=== PATIENT | female | born 1995 | race Caucasian/White ===

== ENCOUNTER 2018-03-11 00:32 | Outpatient (CLI) | payer BC, SELFPAY ==
--- NOTE | 2018-03-11 12:55 | DI.REPORT_ITS ---
SYMPTOMS/DIAGNOSIS: PELVIC PAIN IN FEMALE, R10.2, ? LEFT OVARIAN CYST PELVIC ULTRASOUND: Transabdominal and transvaginal examination was performed. No priors for comparison. The uterus measures 7.2 cm long x 5.4 cm AP x 4.1 cm transverse. The endometrial stripe is within normal limits at 1.1 cm. There is an intrauterine device in good position. No myometrial masses present. The right ovary measures 2.7 x 1.7 x 2.6 cm. The left ovary measures 3 x 2.4 x 2.8 cm. Small follicular cysts are seen bilaterally. There is normal blood flow to the ovaries. No evidence of torsion is present. No free pelvic fluid or hydronephrosis is identified. IMPRESSION: Intrauterine device in good position. Unremarkable pelvic ultrasound.
== END 2018-03-11 00:33 ==
PROVIDERS: PCP Nurse Practitioner Family; Visit Provider Nurse Practitioner Women's Health
DX: R10.2 Pelvic and perineal pain (principal); N83.01 Follicular cyst of right ovary; N83.02 Follicular cyst of left ovary; Z97.5 Presence of (intrauterine) contraceptive device
CPT/HCPCS: 76830; 76856

== ENCOUNTER 2018-06-19 17:15 | Emergency (ER) | payer BC, SELFPAY ==
[2018-06-19] VITALS (17 sets, daily range): BP systolic 100–117; BP diastolic 58–72; PULSE 92–100; RESP 16–18; TEMP 36.6–37.3; O2SAT 95–100
[2018-06-19] MEDS: Normal Saline 1,000 ML 1000 ML IV (17:34)
--- NOTE | 2018-06-19 17:35 | ED.GENADUL_ITS ---
Discharge Plan Disposition Patient Disposition: HOME Condition: Stable Discharge Details Chief Complaint: Abd Prob Clinical Impression: Nephrocalcinosis, Abdominal pain Primary Care Provider: Emily Clarke ED Provider: Jean Spencer Home Meds and New Rx's Prescriptions: New promethazine 25 mg tablet 25 mg PO Q6H PRN (Reason: nausea and vomiting) Qty: 14 RF: 0 Continue norgestimate-ethinyl estradiol [Sprintec (28)] 0.25-35 mg-mcg tablet 1 tab PO DAILY Qty: 84 RF: 0 insulin lispro [Humalog U-100 Insulin] 100 UNIT/1 ML cartridge RF: 0 Discharge Instructions Instructions: Dehydration (ED), Abdominal Pain (ED) Additional Instructions: Feel free to return to the emergency department for any new or worsening symptoms. You may take prescribed medication as needed for any further nausea and stay well-hydrated and slowly increase her diet as tolerated. You should follow-up with your primary care provider for reassessment of your symptoms and to see if you need any further testing. Referrals: Emily Clarke [Primary Care Provider] - 1 week Medical Decision Making Patient presenting the emergency department chief complaint of abdominal pain and headache since this morning. Patient denies any fever chills and states only other associated symptoms is nausea. Patient has odd affect as when not being questioned or have anything she is resting comfortably in bed but upon any questioning or physical examination patient seems to elicit pain. This makes it difficult to perform physical examination but patient does have a guarded abdomen with difficulty to isolate any sort of abdominal findings. Patient is otherwise neurologically intact and no cardiac respiratory findings, no neurological findings, no CVA tenderness. Given patient's guardedness and abnormality of exam I do feel that labs and CT images warranted to rule out acute abdominal emergency. Pending results patient given IV fluids, Zofran, and morphine. Review of labs is nondiagnostic and shows no significant leukocytosis, no severe electrolyte abnormalities. Patient reassessed and states that she is feeling slightly better and that she has not eaten today. Review of CT scan shows bilateral nephrocalcinosis otherwise no other acute findings noted. Patient has no signs of acute renal failure and no urinary findings. Patient was reassessed again and now is more calm and I am able to assess the abdomen and show no acute surgical findings within the abdomen. Given this I feel the patient is able to be safely discharged home but do plan on p.o. challenging her prior to discharge given poor intake today. Patient was able to drink some water and attempted to eat some benoit crackers which is stated made her feel nauseous. Patient was then given Phenergan. Patient was able to continue to tolerate p.o. intake of fluids and states that she is ready to be discharged. Patient was encouraged to return for any new or worsening symptoms otherwise placed up on the list for follow-up with primary care provider for reassessment in the next week. After discussion of diagnosis and plan of care patient has no further needs, questions, or concerns and states clear understanding to return to the emergency department for any worsening symptoms. HPI General Mode of arrival: EMS . Date/Time Provider Initiated Documentation: 06/19/18 17:28 . Limitations to Documentation: no limitations . Information obtained by: patient and RN notes reviewed . History of Present Illness 23 year old F presents to the emergency department with the chief complaint of abd pain, described as moderate, with intensity rated at 8. Quality is described as aching, and is localized to the abdomen. Patient reports no radiation. Patient started experiencing this day(s) (1) and it has been constant. No relieving factors improve symptom(s), No exacerbating factors reported . Patient did receive the following treatments prior to arrival, none Related Data Home Medications Medication Instructions Recorded Confirmed insulin lispro [Humalog U-100 03/04/18 05/11/18 Insulin] norgestimate 0.25 mg-ethinyl 1 tab PO DAILY #84 tab 05/11/18 06/19/18 estradiol 35 mcg tablet promethazine 25 mg PO Q6H PRN #14 tab 06/19/18 Previous Rx's Medication Instructions Recorded norgestimate 0.25 mg-ethinyl 1 tab PO DAILY #84 tab 05/11/18 estradiol 35 mcg tablet promethazine 25 mg PO Q6H PRN #14 tab 06/19/18 Allergies Allergy/AdvReac Type Severity Reaction Status Date / Time insulin glulisine AdvReac Severe Nausea Verified 06/19/18 17:21 [From Apidra U-100 Insulin] General Stated Complaint: Abd Prob TERESA: 3 Review of Systems Constitutional Denies chills, Reports fever(s) and Reports poor appetite Cardiovascular Denies chest pain and Denies dyspnea Respiratory Denies dyspnea Gastrointestinal Reports as per HPI, Reports abdominal pain, Denies melena, Denies change in bowel habits, Denies constipation, Denies diarrhea, Reports nausea and Denies vomiting Genitourinary Denies hematuria, Denies urinary incontinence, Denies urinary hesitancy and Denies urinary urgency Integumentary/Breasts Denies rash PFSH Family History Mother No problems noted. Father No problems noted. Sister No problems noted. Sister No problems noted. Brother No problems noted. Brother No problems noted. 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,[employer] frequency: 3-4 times per week duration: 60-90 minutes/day Smoking/Tobacco Use Status: Never alcohol intake: current alcohol intake frequency: holidays/special occasions only substance use type: does not use Female Reproductive History Menstrual control method: progestin IUCD Exam Const General: in distress mild; not respiratory and anxious Orientation: alert, awake and oriented x3 Limitations: mental status not altered Resp Effort & Inspection: normal respiratory effort and able to speak in complete sentences Auscultation: clear to auscultation bilaterally Cardio Rate: regular rate Rhythm: regular rhythm Heart Sounds: S1 normal and S2 normal GI Palpation: soft, not firm, guarding (difuse), no masses, no pulsatile masses, not rigid, no splenomegaly and tender (difuse) Auscultation: normal bowel sounds Back/Spine/Pelvis Back: no CVA tenderness Neuro General: alert, awake, oriented x3 and moves all extremities Psych Appearance: disheveled Mood: anxious mood Course Vital Signs Temperature 36.6 C 06/19/18 17:16 Pulse 92 H 06/19/18 17:16 Respiratory Rate 18 06/19/18 17:16 Blood Pressure 117/72 06/19/18 17:16 Pulse Oximetry 99 06/19/18 17:16 Temperature 36.6 C 06/19/18 17:16 Temperature Source Skin 06/19/18 17:16 Pulse 92 H 06/19/18 17:16 Respiratory Rate 18 06/19/18 17:16 Blood Pressure 117/72 11/09/18 17:16 Pulse Oximetry 99 06/19/18 17:16 Oxygen Delivery Method Room Air 06/19/18 17:16 Oxygen Flow Rate 0 06/19/18 17:16 Pain Level 8 06/19/18 17:16
[2018-06-19 17:46] LABS: Abs Immature Grans 0.01 k/cumm (0.0-0.09); Absolute Basophil Count 0.02 k/cumm (0.0-0.2); Absolute Lymphocyte Count 1.33 k/cumm (1.2-3.4); Absolute Monocyte Count 0.21 k/cumm (0.11-0.7); Basophils % 0.2; HCT 39.2 % (36.0-46.0); HGB 13.3 g/dL (12.0-15.5); Immature Grans % 0.1; Lymphocytes % 14.3; Mean Corp. HGB Concentration 33.9 g/dL (32.0-36.0); Mean Corpuscular Hemoglobin 30.3 pg (27.0-33.0); Mean Corpuscular Volume 89.3 fL (80-95); Mean Platelet Volume 9.7 fL (8.0-11.0); Monocytes % 2.3; Neutrophils % 83.1; Platelet Count 388 x1000/uL (130-400); RBC 4.39 m/cumm (4.00-5.20); RBC Distribution Width 12.6 % (11.7-14.6); White Blood Cell Count 9.27 k/cumm (4.4-10.8)
[2018-06-19] MEDS: Ondansetron 4 MG/2 ML VIAL IVP (17:59)
[2018-06-19] MEDS: MORPHine 10 MG/ML VIAL 4 MG IVP (17:59)
[2018-06-19 18:00] LABS: ALT 17 U/L (12-78); AST 24 U/L (15-37); Albumin 3.7 g/dL (3.4-5.0); Alkaline Phosphatase 64 U/L (46-116); Anion Gap 13.7 mmol/L (3-11); BUN 5 mg/dL (7-18); Bilirubin, Total 0.4 mg/dL (0.2-1.0); CO2 22.3 mmol/L (21.0-32.0); CREATININE 0.62 mg/dL (0.55-1.02); Calcium 8.9 mg/dL (8.5-10.1); Chloride 99 mmol/L (98-107); Glucose 101 mg/dL (70-100); Lipase 72 U/L (73-393); Magnesium 1.7 mg/dL (1.8-2.4); Potassium 3.2 mmol/L (3.5-5.1); Sodium 135 mmol/L (136-145); Total Protein 7.7 g/dL (6.4-8.2)
--- NOTE | 2018-06-19 18:21 | DI.CT_ITS ---
SYMPTOM/DIAGNOSIS: ABD PAIN CT ABDOMEN AND PELVIS: CT scan of the abdomen and pelvis was performed following the uneventful administration of intravenous contrast material. There are no priors for comparison. The dome of the liver was not included on this examination. The visualized lung bases are clear. The visualized portions of the liver are unremarkable. The portal and superior mesenteric veins are patent. Gallbladder is negative. No biliary ductal dilatation is seen. The pancreas, spleen and adrenal glands are unremarkable. The kidneys show normal and symmetric enhancement. There are tiny hypodensities seen within the kidneys. They are too small for further characterization but likely reflect very small cysts. There does appear to be increased attenuation of the medullary pyramids. 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 No evidence of ureterolithiasis or hydronephrosis is seen. The urinary bladder is intact. The reproductive organs are unremarkable.. The abdominal aorta is of normal caliber. No significant abdominal or pneumoperitoneum is present. There is a small amount of free fluid in the pelvis and in the right pericolic gutter. The bowel is unremarkable. There is a normal appendix seen in the right lower quadrant. The bones appear intact. There is a chronic appearing triangular well corticated tiny calcification at the anterior superior aspect of the L3 vertebral body. No acute fractures or subluxations are appreciated. IMPRESSION: No evidence of an acute abdomen.
[2018-06-19 18:37] LABS: Bilirubin Negative (Negative); Blood Negative (Negative); Clarity Clear; Glucose Negative (Negative); Ketones 80 mg/dL (Negative); Leukocyte Esterase Negative (Negative); Nitrite Negative (Negative); Urobilinogen 0.2 EU/dL (Up TO 0.2); pH 7.5 (5-8)
[2018-06-19] MEDS: Omnipaque 350 MG/ML 100 ML BTL IJ (18:49)
--- NOTE | 2018-06-19 18:54 | DI.VRAD_ITS ---
EXAM: CT Abdomen and Pelvis With Intravenous Contrast EXAM DATE/TIME: 06/19/2018 6:22 PM CLINICAL HISTORY: 23 years old, female; Pain; Abdominal pain TECHNIQUE: Axial computed tomography images of the abdomen and pelvis with intravenous contrast. Coronal and sagittal reformatted images were created and reviewed. COMPARISON: US PELVIS TRANSVAG 03/11/2018 10:30 PM FINDINGS: Lower thorax: No acute findings. ABDOMEN: Liver: Normal. No mass. Gallbladder and bile ducts: Normal. No calcified stones. No ductal dilation. Pancreas: Normal. No ductal dilation. Spleen: Normal. No splenomegaly. Adrenals: Normal. No mass. Kidneys and ureters: Very small cysts in both kidneys . 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 No obstruction. No mucosal thickening. Appendix: Normal appendix PELVIS: Bladder: Unremarkable as visualized. Reproductive: Unremarkable as visualized. ABDOMEN and PELVIS: Intraperitoneal space: Mild amount of fluid in the right pericolic gutter. Mild amount of free fluid in the pelvis. . Bones/joints: Unhealed fracture involving the anterior superior aspect of L3 Soft tissues: Unremarkable Vasculature: Normal. No abdominal aortic aneurysm. 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 Ordering:LOW WASHINGTON MD
[2018-06-19] MEDS: Promethazine 25 MG TAB PO (19:59)
== END 2018-06-19 21:10 | disposition home or self-care (01) ==
PROVIDERS: Emergency Provider Nurse Practitioner Family; PCP Nurse Practitioner Family
DX: E83.59 Other disorders of calcium metabolism (principal); R10.9 Unspecified abdominal pain; R51 Headache
CPT/HCPCS: 36415; 80053; 81025; 83690; 96361; 96374; 96375; 99285; 74177; 81003; 83735; 85025; 99284; J2270; J2405; J3490

== ENCOUNTER 2023-07-14 04:05 | Outpatient (CLI) | payer OTHER, BC, SELFPAY ==
[2023-07-14 15:24] LABS: Panorama Kit Sent via Fed Ex
[2023-07-14 15:34] LABS: Abs Immature Grans 0.04 10^3/uL (0.0-0.06); Absolute Basophil Count 0.06 10^3/uL (0.0-0.2); Absolute Eosinophil Count 0.17 10^3/uL (0.0-0.7); Absolute Lymphocyte Count 2.22 10^3/uL (1.2-3.4); Basophils % 0.5; Eosinophils % 1.5; HCT 38.2 % (36.0-46.0); HGB 12.7 g/dL (11.2-15.7); Immature Grans % 0.4; Lymphocytes % 19.8; MCH 29.1 pg (27.0-33.0); MCHC 33.2 % (32.0-36.0); MCV 88 fL (80-95); MPV 9.1 fL (8.0-11.0); Monocytes % 4.5; Neutrophils % 73.3; Platelet Count 474 10^3/uL (130-400); RBC 4.36 10^6/uL (3.93-5.22); RDW 13.1 % (11.7-14.6); RDW-SD 42.2 fL; WBC 11.19 10^3/uL (4.4-10.8)
[2023-07-14 16:06] LABS: TSH (W/Ref FT4) 2.08 uIU/mL (0.36-3.74)
[2023-07-15 10:25] LABS: Rubella IgG Ab (UVM) Positive (See Note); Varicella IgG Antibody Positive (See Note)
[2023-07-15 11:08] LABS: Hepatitis C Ab w Rflx HCV PCR Negative (Negative)
[2023-07-15 11:22] LABS: HIV-1/2 Ag & Ab Screen Negative (Negative)
[2023-07-15 11:35] LABS: Hepatitis B Surface Ag Negative (Negative)
[2023-07-16 22:04] LABS: Syphilis IgG w/Reflex Nonreactive (Nonreactive)
== END 2023-07-14 04:06 | disposition home or self-care (01) ==
PROVIDERS: PCP Nurse Practitioner Family; Visit Provider Advanced Practice Midwife
DX: Z34.91 Encounter for supervision of normal pregnancy, unspecified, first trimester
CPT/HCPCS: 36415; 86787; 86803; 86850; 86900; 86901; 87340; 87389; 84443; 85025; 86762; 86780

== ENCOUNTER 2023-07-14 15:53 | Outpatient (REF) | payer OTHER, BC, SELFPAY ==
--- NOTE | 2023-07-14 14:00 | PAPFT_PTH ---
PATIENT: Deb Amaya LOC: [facility] U#:[id number] AGE/SX: 28/F ROOM: RE07/14/[address]: Jannette Muhammad CNM : 1995 BED: DIS: 07/14/2023 SPEC #: [id number] RECD: 07/14/23 18:02 STATUS: LENIN SADLER #: [id number] GENNA: 07/14/23 14:[address]: Jannette Muhammad DEPT: [facility] Cytology RECD BY: Adele Trammell ENTERED: 07/14/23 18:03 SP TYPE: PAPFT OTHR DR: Emily Clarke Tissues: 1 - CX/ENDOCX FOR PAP SMEARS Procedures: PAP THIN PREP/UVM Screening HPV DNA PROBE Comments: [id number] (CHLAMYDIA/GC)
[2023-07-14 18:41] LABS: *AMPHETAMINES SCREEN URINE Negative (Negative); *BARBITURATES SCREEN URINE Negative (Negative); *BENZODIAZEPINES SCREEN URINE Negative (Negative); Cannabinoids THC Negative (Negative); Cocaine Screen,Urine Negative (Negative); METHADONE URINE SCREEN Negative (Negative); OPIATES URINE SCREEN Negative (Negative)
[2023-07-14 18:43] LABS: Tricyclic Antidepressants Negative (Negative)
[2023-07-15 14:08] LABS: Chlamydia Result Negative (Negative); GC Result Negative (Negative)
[2023-07-19 14:55] LABS: Buprenorphine Negative ng/mL (Cutoff: 5.0); Norbuprenorphine Negative ng/mL (Cutoff: 2.5)
== END 2023-07-14 15:54 | disposition home or self-care (01) ==
LOC: LBN 15:53
PROVIDERS: PCP Nurse Practitioner Family; Visit Provider Advanced Practice Midwife
DX: Z34.91 Encounter for supervision of normal pregnancy, unspecified, first trimester
CPT/HCPCS: 80307; 80348; 87491; 87591; 88142; 87086; 87624